=== PATIENT | female | born 1985 | race Caucasian/White ===

== ENCOUNTER 2022-07-20 20:33 | Emergency (ER) | payer BC ==
[2022-07-21 06:04] VITALS: BP 164/104; PULSE 100
== END 2022-07-20 23:31 | disposition home or self-care (01) ==
LOC: JD.ED 20:33
DX: S96.912A Strain of unspecified muscle and tendon at ankle and foot level, left foot, initial encounter (principal); X50.1XXA Overexertion from prolonged static or awkward postures, initial encounter
CPT/HCPCS: 73610-26-LT; 73610-LT; 99283

== ENCOUNTER 2023-01-08 20:59 | Emergency (ER) | payer BC ==
[2023-01-08] MEDS ORDERED: Sodium Chloride 0.9% 10 ML Syringe FLUSH PRN (21:13)
[2023-01-08] MEDS ORDERED: Sodium Chloride 0.9% 1,000 ML IV STA (21:13)
[2023-01-08] MEDS ORDERED: Ondansetron 4 MG/2 ML SDV IVPUSH ONE ×2 (21:13→22:34)
[2023-01-08] MEDS ORDERED: Metoclopramide 10 MG/2 ML SDV IVPUSH ONE (22:35)
[2023-01-08 23:44] VITALS: BP 140/83; PULSE 97
== END 2023-01-08 23:44 | disposition home or self-care (01) ==
LOC: JD.ED 20:59
DX: R11.2 Nausea with vomiting, unspecified (principal); R10.9 Unspecified abdominal pain; E10.9 Type 1 diabetes mellitus without complications; Z88.8 Allergy status to other drugs, medicaments and biological substances
CPT/HCPCS: 36415; 80053; 81001; 82009; 82947; 85025; 96361; 96374; 96375; 99284; J2405; J2765; J7030